=== PATIENT | female | born 1960 | race Caucasian/White ===

== ENCOUNTER → 2017-11-16 | Outpatient (CLI) | payer MEDICARE ==
[2017-11-17 12:02] LABS: BASOPHILS # (AUTO) 0.1 10^3/uL (0.0-0.1); BASOPHILS % (AUTO) 0.8 %; EOSINOPHILS # (AUTO) 0.3 10^3/uL (0.0-0.7); LYMPHOCYTES # (AUTO) 2.1 10^3/uL (1.5-3.5); LYMPHOCYTES % (AUTO) 24.1 %; MEAN CORPUSCULAR HGB CONC 34.1 g/dL (32.0-36.0); MEAN CORPUSCULAR VOLUME 96.7 fL (81.0-99.0); MEAN PLATELET VOLUME 8.7 fL (7.9-10.8); MONOCYTES # (AUTO) 0.5 10^3/uL (0.0-1.0); MONOCYTES % (AUTO) 5.9 %; NEUTROPHILS # (AUTO) 5.9 10^3/uL (1.5-6.6); NEUTROPHILS % (AUTO) 66.2 %; PLT - PLATELET COUNT 230 10^3/uL (130-450); RED BLOOD COUNT 4.24 10^6/uL (4.20-5.40); RED CELL DISTRIBUTION WIDTH 12.8 % (12.0-15.0); WHITE BLOOD COUNT 8.8 x10^3/uL (4.8-10.8)
[2017-11-17 12:20] LABS: ALBUMIN 4.5 g/dL (3.2-5.5); ALBUMIN/GLOBULIN RATIO 1.6 (1.0-2.2); ALKALINE PHOSPHATASE 95 IU/L (42-121); ALT ALANINE AMINOTRANSFERASE 14 IU/L (10-60); AST ASPARTATE AMINOTRANSFERASE 16 IU/L (10-42); BILIRUBIN,TOTAL 0.9 mg/dL (0.2-1.0); BUN - BLOOD UREA NITROGEN 13 mg/dL (6-20); CALCIUM 9.9 mg/dL (8.5-10.3); CARBON DIOXIDE - CO2 26 mmol/L (21-32); CHLORIDE 102 mmol/L (101-111); CHOL/HDL RATIO 5.7 (<4.4); CHOLESTEROL 218 mg/dL; CREATININE 0.6 mg/dL (0.4-1.0); GFR - MDRD 103 (>89); GLUCOSE 99 mg/dL (70-100); HDL CHOLESTEROL 38 mg/dL; LDL CHOLESTEROL,CALCULATED 144 mg/dL; LDL/HDL RATIO 3.8 (<4.4); SODIUM 137 mmol/L (135-145); TOTAL PROTEIN 7.3 g/dL (6.7-8.2); VLDL CHOLESTEROL 36 mg/dL
[2017-11-17 12:42] LABS: PLATELET ESTIMATE, MANUAL NORMAL (130-450,000) (NORMAL); PLATELET MORPHOLOGY NORMAL APPEARANCE (NORMAL); RBC MORPHOLOGY (MULTIPLE) NORMAL APPEARANCE (NORMAL)
[2017-11-17 13:19] LABS: HB2 TOTAL 15.3 g/dL; HEMOGLOBIN A1C 0.69 g/dL; HEMOGLOBIN A1C % 6.3 % (4.6-6.2)
== END ==
LOC: LAB.S 08:00
PROVIDERS: ATTEND Nurse Practitioner Family
DX: E11.40 Type 2 diabetes mellitus with diabetic neuropathy, unspecified (principal); E78.5 Hyperlipidemia, unspecified; E03.9 Hypothyroidism, unspecified
CPT/HCPCS: 36415; 80053; 80061; 82043; 83036; 83721; 84443; 85025

== ENCOUNTER 2018-05-25 13:34 | Outpatient (CLI) | payer MEDICARE ==
[2018-05-25 18:11] LABS: HB2 TOTAL 14.5 g/dL; HEMOGLOBIN A1C 0.58 g/dL; HEMOGLOBIN A1C % 5.8 % (4.6-6.2)
== END 2018-05-25 13:35 | disposition home or self-care (01) ==
LOC: LAB.F 13:34
PROVIDERS: ATTEND Nurse Practitioner Family
DX: E11.40 Type 2 diabetes mellitus with diabetic neuropathy, unspecified (principal)
CPT/HCPCS: 36415; 83036

== ENCOUNTER 2018-11-10 14:29 | Outpatient (CLI) | payer MEDICARE ==
[2018-11-10 17:35] LABS: BASOPHILS # (AUTO) 0.1 10^3/uL (0.0-0.1); BASOPHILS % (AUTO) 0.6 %; EOSINOPHILS # (AUTO) 0.6 10^3/uL (0.0-0.7); LYMPHOCYTES % (AUTO) 23.9 %; MEAN CORPUSCULAR HGB CONC 33.5 g/dL (32.0-36.0); MEAN CORPUSCULAR VOLUME 95.6 fL (81.0-99.0); MEAN PLATELET VOLUME 10.1 fL (7.9-10.8); MONOCYTES # (AUTO) 0.4 10^3/uL (0.0-1.0); MONOCYTES % (AUTO) 5.1 %; NEUTROPHILS # (AUTO) 5.3 10^3/uL (1.5-6.6); PLT - PLATELET COUNT 249 10^3/uL (130-450); RED BLOOD COUNT 4.06 10^6/uL (4.20-5.40); WHITE BLOOD COUNT 8.5 x10^3/uL (4.8-10.8)
[2018-11-10 18:04] LABS: CHOL/HDL RATIO 4.7 (<4.4); CHOLESTEROL 222 mg/dL; HDL CHOLESTEROL 47 mg/dL; LDL CHOLESTEROL,CALCULATED 132 mg/dL; LDL/HDL RATIO 2.8 (<4.4); VLDL CHOLESTEROL 43 mg/dL
[2018-11-10 18:31] LABS: HB2 TOTAL 13.9 g/dL; HEMOGLOBIN A1C 0.67 g/dL; HEMOGLOBIN A1C % 6.6 % (4.6-6.2)
== END 2018-11-10 14:30 | disposition home or self-care (01) ==
LOC: LAB.S 14:29
PROVIDERS: ATTEND Physician Assistant Medical
DX: E78.5 Hyperlipidemia, unspecified (principal); E11.40 Type 2 diabetes mellitus with diabetic neuropathy, unspecified; E03.9 Hypothyroidism, unspecified; Z79.899 Other long term (current) drug therapy
CPT/HCPCS: 36415; 80061; 82043; 82570; 83036; 83721; 84443; 85025

== ENCOUNTER 2018-11-12 08:00 | Outpatient (CLI) | payer MEDICARE ==
[2018-11-12 18:46] LABS: CREATININE,URINE 31.2 mg/dL
[2018-11-12 18:50] LABS: MICROALBUMIN,URINE < 0.2 mg/dL (0-300.0)
== END 2018-11-12 23:59 | disposition home or self-care (01) ==
LOC: LAB.R 08:00
PROVIDERS: ATTEND Physician Assistant Medical
DX: E11.40 Type 2 diabetes mellitus with diabetic neuropathy, unspecified (principal)
CPT/HCPCS: 82043; 82570

== ENCOUNTER 2019-04-18 07:16 | Outpatient (CLI) | payer MEDICARE | END 2019-04-18 07:17 | disposition home or self-care (01) | LOC: DI.S 07:16 | PROVIDERS: ATTEND Nurse Practitioner Family | DX: Z53.9 Procedure and treatment not carried out, unspecified reason (principal) ==

== ENCOUNTER 2019-09-20 10:40 | Outpatient (CLI) | payer MEDICARE ==
[2019-09-20 14:43] LABS: BASOPHILS # (AUTO) 0.1 10^3/uL (0.0-0.1); BASOPHILS % (AUTO) 0.7 %; EOSINOPHILS # (AUTO) 0.3 10^3/uL (0.0-0.7); EOSINOPHILS % (AUTO) 3.4 %; LYMPHOCYTES # (AUTO) 2.1 10^3/uL (1.5-3.5); LYMPHOCYTES % (AUTO) 24.3 %; MEAN CORPUSCULAR HEMOGLOBIN 32.2 pg (27.0-31.0); MEAN CORPUSCULAR HGB CONC 34.4 g/dL (32.0-36.0); MEAN CORPUSCULAR VOLUME 93.6 fL (81.0-99.0); MEAN PLATELET VOLUME 10.1 fL (7.9-10.8); MONOCYTES # (AUTO) 0.6 10^3/uL (0.0-1.0); MONOCYTES % (AUTO) 6.8 %; NEUTROPHILS # (AUTO) 5.5 10^3/uL (1.5-6.6); NEUTROPHILS % (AUTO) 64.2 %; PLT - PLATELET COUNT 263 10^3/uL (130-450); RED BLOOD COUNT 4.04 10^6/uL (4.20-5.40); RED CELL DISTRIBUTION WIDTH 11.8 % (12.0-15.0); WHITE BLOOD COUNT 8.5 x10^3/uL (4.8-10.8)
[2019-09-20 15:00] LABS: CREATININE,URINE 51.6 mg/dL; MICROALBUM/CREATININE RATIO,UR 56.2 ug/mg (<30.0); MICROALBUMIN,URINE 2.9 mg/dL (0-300.0)
[2019-09-20 15:01] LABS: ALBUMIN 4.2 g/dL (3.2-5.5); ALBUMIN/GLOBULIN RATIO 1.4 (1.0-2.2); ALKALINE PHOSPHATASE 108 IU/L (42-121); ALT ALANINE AMINOTRANSFERASE 17 IU/L (10-60); AST ASPARTATE AMINOTRANSFERASE 16 IU/L (10-42); BILIRUBIN,TOTAL 0.8 mg/dL (0.2-1.0); BUN - BLOOD UREA NITROGEN 14 mg/dL (6-20); CALCIUM 9.1 mg/dL (8.5-10.3); CARBON DIOXIDE - CO2 25 mmol/L (21-32); CHLORIDE 97 mmol/L (101-111); CHOL/HDL RATIO 4.9 (<4.4); CHOLESTEROL 204 mg/dL; CREATININE 0.7 mg/dL (0.4-1.0); GLUCOSE 135 mg/dL (70-100); HDL CHOLESTEROL 42 mg/dL; LDL CHOLESTEROL,CALCULATED 139 mg/dL; LDL/HDL RATIO 3.3 (<4.4); SODIUM 130 mmol/L (135-145); TOTAL PROTEIN 7.1 g/dL (6.7-8.2); VLDL CHOLESTEROL 23 mg/dL
[2019-09-20 15:05] LABS: HB2 TOTAL 13.6 g/dL; HEMOGLOBIN A1C 0.67 g/dL; HEMOGLOBIN A1C % 6.7 % (4.6-6.2)
== END 2019-09-20 10:41 | disposition home or self-care (01) ==
LOC: LAB.S 10:40
PROVIDERS: ATTEND Nurse Practitioner Family
DX: Z13.220 Encounter for screening for lipoid disorders (principal); E11.9 Type 2 diabetes mellitus without complications
CPT/HCPCS: 36415; 80053; 80061; 82043; 82570; 83036; 83721; 84443; 85025

== ENCOUNTER 2019-11-20 06:30 | Outpatient (CLI) | payer MEDICARE | END 2019-11-20 06:31 | disposition critical access hospital (66) | LOC: EMS 06:30 | PROVIDERS: ATTEND Surgery | DX: M54.5 Low back pain (principal); R20.0 Anesthesia of skin | CPT/HCPCS: A0425; A0427 ==

== ENCOUNTER 2019-11-20 07:06 | Emergency (ER) | payer MEDICARE ==
[2019-11-20] MEDS ORDERED: KETOROLAC 30 MG/ML VIAL IVP STA (07:34)
--- NOTE | 2019-11-20 07:37 | ED Physician Documentation ---
History of Present Illness - Stated complaint Stated Complaint: BACK PAIN - Chief complaint Chief Complaint: Back Pain - History obtained from History obtained from: Patient, EMS - Additonal information Additional information: Patient comes emergency department complaining of left lower back pain radiating through her hip and down into her knee. Patient states that she has a longstanding history of low back problems and that the last time she had an attack this bad was about 3 years ago. She states she has been moving and also done some camping in the last few weeks. Because all of her stuff is packed up, she has been sleeping on her old couch which has a recliner function, and has not been sleeping very well. Patient denies any direct trauma to the area. She denies any weakness or loss of bowel or bladder function. She states she has a numb feeling in a small patch just below her left knee, but otherwise, no sensory loss. Patient denies any abdominal pain. No chest pain or shortness of breath. No nausea vomiting. Patient states that she has not felt sick in any other way. No other complaints at this time. Review of Systems Ten Systems: 10 systems reviewed and negative Constitutional: reports: Reviewed and negative Eyes: reports: Reviewed and negative Ears: reports: Reviewed and negative Nose: reports: Reviewed and negative Throat: reports: Reviewed and negative Cardiac: reports: Reviewed and negative Respiratory: reports: Reviewed and negative GI: reports: Reviewed and negative : reports: Reviewed and negative Skin: reports: Reviewed and negative Musculoskeletal: reports: Back pain Neurologic: reports: Reviewed and negative Psychiatric: reports: Reviewed and negative Endocrine: reports: Reviewed and negative Immunocompromised: reports: Reviewed and negative PD PAST MEDICAL HISTORY - Past Medical History Past Medical History: Yes Respiratory: Asthma Endocrine/Autoimmune: Type 2 diabetes, HyPOthyroidism GI: Pancreatitis, Other SCREEN CLEANER: None Psych: Anxiety Musculoskeletal: Osteoarthritis, Chronic back pain, Other - Past Surgical History Past Surgical History: Yes HEENT: Tonsil/Adenoidectomy - Present Medications Home Medications: Ambulatory Orders Medication Instructions Recorded Confirmed ARIPiprazole [Abilify] 5 mg PO DAILY 07/26/13 08/22/15 Albuterol Sulfate [Proair Hfa] 8.5 gm IH QID 07/26/13 08/22/15 Nortriptyline [Pamelor] 50 mg PO HS 07/26/13 08/22/15 cloNIDine [Catapres] 0.1 mg PO BID 07/26/13 08/22/15 B Complex W-C No.20/Folic Acid 1 mg PO DAILY 08/22/15 08/22/15 [Virt-Caps Softgel] Cholecalciferol (Vitamin D3) 10,000 unit PO DAILY 08/22/15 08/22/15 [Vitamin D3] Fluticasone 44 Mcg [Flovent] 2 puffs INH Q4H 08/22/15 08/22/15 Insulin Glargine,Hum.rec.anlog 10 unit SQ DAILY 08/22/15 08/22/15 [Lantus] Levothyroxine [Synthroid] 137.5 mcg PO DAILY 08/22/15 08/22/15 Naproxen [Naprosyn] 500 mg PO BID 08/22/15 08/22/15 Omeprazole [PriLOSEC] 20 mg PO DAILY 08/22/15 08/22/15 buPROPion [Wellbutrin Sr] 100 mg PO DAILY 08/22/15 08/22/15 metFORMIN [Glucophage] 500 mg PO BIDWM 08/22/15 08/22/15 Cyclobenzaprine [Flexeril] 10 mg PO TID PRN #20 tablet 11/20/19 Hydrocodone/Acetaminophen 1 each PO Q6HR PRN 3 Days #12 11/20/19 [Hydrocodone-Acetamin 5-325 mg] tablet - Allergies Allergies/Adverse Reactions: Allergies Allergy/AdvReac Type Severity Reaction Status Date / Time No Known Drug Allergies Allergy Verified 07/26/13 15:30 - Social History Does the pt smoke?: Yes Smoking Status: Current every day smoker Does the pt drink ETOH?: No Does the pt have substance abuse?: No - Immunizations Immunizations are current?: Yes PD ED PE NORMAL - Vitals Vital signs reviewed: Yes - General General: Alert and oriented X 3, No acute distress - HEENT HEENT: Atraumatic, PERRL, EOMI, Moist mucous membranes - Neck Neck: Supple, no meningeal sign - Cardiac Cardiac: RRR, No murmur, Strong equal pulses - Respiratory Respiratory: No respiratory distress, Clear bilaterally - Abdomen Abdomen: Non distended - Back Back: Other (Patient has mild tenderness palpation over her L5-S1 area, which she describes as the focus of her back pain. No left sciatic tenderness to palpation. No right-sided tenderness whatsoever. No other spinal tenderness or step-off.) - Derm Derm: Normal color, Warm and dry, No rash - Extremities Extremities: No deformity, No tenderness to palpate, No calf tenderness / cord - Neuro Neuro: Alert and oriented X 3, bolt cutter 2-12 intact, No motor deficit, No sensory deficit, Normal speech - Psych Psych: Normal mood, Normal affect Results - Vitals Vitals: Vital Signs - 24 hr 11/20/19 07:10 Temperature 36.4 C L Heart Rate 89 Respiratory 18 Rate Blood Pressure 125/81 H O2 Saturation 97 Oxygen O2 Source Room air PD MEDICAL DECISION MAKING - ED course Complexity details: reviewed old records, considered differential, d/w patient ED course: The patient had had an IV placed by medics and had received 100 mcg of fentanyl, which had improved her symptoms by the time of arrival here. She was also given a dose of Toradol here in the emergency department. The patient actually appeared fairly comfortable and was able to sit up on her own for me, and I did not feel that any further parenteral opioids were indicated. I discussed with t jimena patient that I will give her some symptomatic treatment for at home, and that she should follow-up with her primary care physician. Patient has had cortisone shots in the past, which have been helpful, and she may see her primary care physician to discuss having one done again. We have discussed home management of the symptoms, as well as the usual indications for return. Departure - Departure Disposition: 01 Home, Self Care Clinical Impression: Back pain Qualifiers: Back pain location: low back pain Chronicity: acute Back pain laterality: left Sciatica presence: with sciatica Sciatica laterality: sciatica of left side Qualified Code(s): M54.42 - Lumbago with sciatica, left side Instructions: ED Back Care Tips, ED Low Back Pain Injury, NARCOTIC, Oral Prescriptions: Hydrocodone/Acetaminophen [Hydrocodone-Acetamin 5-325 mg] 1 each PO Q6HR PRN 3 Days #12 tablet PRN Reason: Pain Cyclobenzaprine [Flexeril] 10 mg PO TID PRN #20 tablet PRN Reason: Spasms
[2019-11-20 09:11] VITALS: BP 136/84
== END 2019-11-20 09:12 | disposition home or self-care (01) ==
LOC: EDUNIT# → ED 07:06
DX: M54.42 Lumbago with sciatica, left side (principal); E11.9 Type 2 diabetes mellitus without complications; Z79.4 Long term (current) use of insulin; J45.909 Unspecified asthma, uncomplicated; F17.200 Nicotine dependence, unspecified, uncomplicated
CPT/HCPCS: 96374; 99284

== ENCOUNTER 2019-11-25 12:20 | Outpatient (CLI) | payer MEDICARE ==
--- NOTE | 2019-11-27 22:19 | CT Report ---
PROCEDURE: PELVIS WO INDICATIONS: LUMBAR DISC DEGENERATION TECHNIQUE: Noncontrast 3 mm axial sections acquired through the bony pelvis, with coronal and sagittal reformatt ing. For radiation dose reduction, the following was used: automated exposure control, adjustment of mA and/or kV according to patient size. COMPARISON: None. FINDINGS: Image quality: Excellent. Bones: Moderate L4-L5 degenerative disc disease. No fracture or dislocation. No suspicious osseous l esions. Incidental note made of a bone island in the right superior pubic ramus. Mild bilateral hip a rthritis. Soft tissues: No free fluid or air. Visualized loops of bowel are normal caliber. Urinary bladder wa ll thickness is normal. Small fat-containing umbilical hernia. IMPRESSION: 1. Mild bilateral hip osteoarthritis. 2. Moderate L4-L5 degenerative disc disease. 2. No fracture or dislocation. Reviewed by: Maria Del Rosario Goldberg MD, PhD on 11/27/2019 10:18 PM PDT Approved by: Maria Del Rosario Goldberg MD, PhD on 11/27/2019 10:18 PM PDT Station ID: [id number]
--- NOTE | 2019-11-28 11:31 | CT Report ---
PROCEDURE: LUMBAR SPINE WO INDICATIONS: LUMBAR DISC DEGENERATION TECHNIQUE: Noncontrast 3 mm thick sections acquired from the T12 level to the sacrum. Sagittal and coronal refo rmats were constructed. For radiation dose reduction, the following was used: automated exposure co ntrol, adjustment of mA and/or kV according to patient size. COMPARISON: Correlation is made with prior lumbar plain films 08/22/2012 FINDINGS: Image quality: Excellent. Bones: No acute vertebral body compression fractures. No suspicious lytic or blastic bony lesions. Central spinal caliber is of normal overall caliber. No pars defects. S-shaped scoliotic curvature is incidentally noted. Minimal retrolisthesis is seen at L3-L4 and L4-L 5. This patient has transitional anatomy. For the purposes of this examination, the level with the last pair of ribs is considered to be T12. By this imaging scheme, the L5 level is transitional and partia lly sacralized, with a greater degree of sacralization on the right side than on the left. T12-L1: The disc height is relatively well preserved. Mild disc bulge is seen, which is eccentric to the left. No significant neural foraminal or central canal narrowing can be seen. L1-L2: The disc height is well-preserved. Mild disc bulge is seen. There is a minimal right fora leidy disc protrusion. There is mild to moderate bilateral neuroforaminal narrowing seen. No signific ant central canal narrowing is seen. L2-L3: The disc height is well-preserved. Moderate disc bulge is seen, which is eccentric to the r ight, with a right foraminal disc protrusion, as on series 3 image 49. There is mild to moderate bila teral neuroforaminal narrowing seen. Moderate central canal narrowing is seen. L3-L4: The disc height is well-preserved. At least moderate disc bulge is seen, with a central disc protrusion. Vacuum disc phenomenon is seen at this level. Mild facet hypertrophy is seen. There i s moderate left-sided and [id number] right-sided neuroforaminal narrowing seen. Moderate centr al canal narrowing is seen. L4-L5: Moderate loss of disc height is seen. Vacuum disc phenomenon is seen at this level. At prabhu st moderate disc bulge is seen. There is a central disc protrusion. Moderate facet hypertrophy is se en. Posteriorly directed endplate osteophytes are seen. There is moderate to severe left-sided and at least moderate right-sided neuroforaminal narrowing seen. Moderate central canal narrowing is see n. L5-S1: The disc height is well-preserved. Moderate disc bulge is seen, which is eccentric to the ri ght. Posteriorly directed endplate osteophytes are seen, which are more prominent on the right side t [place] on the left. There is moderate left-sided and at least moderate right-sided neuroforaminal narrow ing seen. Minimal central canal narrowing is seen. Soft tissues: No retroperitoneal masses or hematomas. Visualized aorta is normal in caliber. IMPRESSION: Lumbar spine degenerative change is seen, which is overall most prominent at the L4-L5 level. 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 S-shaped scoliosis is seen. Reviewed by: Landon Henry MD on 11/28/2019 10:30 AM MELINA Approved by: Landon Henry MD on 11/28/2019 10:30 AM MELINA Station ID: [id number]
== END 2019-11-25 12:21 | disposition home or self-care (01) ==
LOC: DI 12:20
PROVIDERS: ATTEND Nurse Practitioner Family
DX: M51.36 Other intervertebral disc degeneration, lumbar region (principal); M51.26 Other intervertebral disc displacement, lumbar region; M41.86 Other forms of scoliosis, lumbar region; M70.62 Trochanteric bursitis, left hip; M16.0 Bilateral primary osteoarthritis of hip
CPT/HCPCS: 72131; 72192

== ENCOUNTER 2019-12-09 04:52 | Outpatient (CLI) | payer MEDICARE | END 2019-12-09 04:53 | disposition critical access hospital (66) | LOC: EMS 04:52 | PROVIDERS: ATTEND Surgery | DX: M54.32 Sciatica, left side (principal) | CPT/HCPCS: A0425; A0427 ==

== ENCOUNTER 2019-12-09 05:26 | Emergency (ER) | payer MEDICARE ==
--- NOTE | 2019-12-09 05:24 | ED Physician Documentation ---
History of Present Illness - Stated complaint Stated Complaint: BACK PAIN - History obtained from History obtained from: Patient - Additonal information Additional information: The patient is a 59-year-old female who arrives by ambulance with a chief complaint of left sciatica pain. The patient reports that she was packing boxes in her residence tonight because she is being evicted and during the process she slipped and fell on her bottom she reports that has exacerbated her chronic left-sided sciatica that has her using a walker to assist with ambulation she has follow-up with her orthopedic surgeon this week as well as her primary care provider. She denies any bowel or bladder dysfunction or any saddle anesthesia she describes pain that starts in her left gluteal region and then radiates down her left lower extremity. Review of Systems Constitutional: reports: Reviewed and negative Eyes: reports: Reviewed and negative Ears: reports: Reviewed and negative Nose: reports: Reviewed and negative Throat: reports: Reviewed and negative Cardiac: reports: Reviewed and negative Respiratory: reports: Reviewed and negative GI: reports: Reviewed and negative : reports: Reviewed and negative Skin: reports: Reviewed and negative Musculoskeletal: reports: Other (Left-sided sciatica pain) Neurologic: reports: Reviewed and negative Psychiatric: reports: Reviewed and negative Endocrine: reports: Reviewed and negative Immunocompromised: reports: Reviewed and negative PD PAST MEDICAL HISTORY - Present Medications Home Medications: Ambulatory Orders Medication Instructions Recorded Confirmed ARIPiprazole [Abilify] 5 mg PO DAILY 07/26/13 12/09/19 Albuterol Sulfate [Proair Hfa] 8.5 gm IH QID 07/26/13 12/09/19 Nortriptyline [Pamelor] 50 mg PO HS 07/26/13 12/09/19 cloNIDine [Catapres] 0.1 mg PO BID 07/26/13 12/09/19 B Complex W-C No.20/Folic Acid 1 mg PO DAILY 08/22/15 12/09/19 [Virt-Caps Softgel] Cholecalciferol (Vitamin D3) 10,000 unit PO DAILY 08/22/15 12/09/19 [Vitamin D3] Fluticasone 44 Mcg [Flovent] 2 puffs INH Q4H 08/22/15 12/09/19 Insulin Glargine,Hum.rec.anlog 10 unit SQ DAILY 05/25/16 09/11/20 [Lantus] Levothyroxine [Synthroid] 137.5 mcg PO DAILY 08/22/15 12/09/19 Naproxen [Naprosyn] 500 mg PO BID 08/22/15 12/09/19 Omeprazole [PriLOSEC] 20 mg PO DAILY 08/22/15 12/09/19 buPROPion [Wellbutrin Sr] 100 mg PO DAILY 08/22/15 12/09/19 metFORMIN [Glucophage] 500 mg PO BIDWM 08/22/15 12/09/19 Cyclobenzaprine [Flexeril] 10 mg PO TID PRN #20 tablet 11/20/19 12/09/19 Hydrocodone/Acetaminophen 1 each PO Q6HR PRN 3 Days #12 11/20/19 12/09/19 [Hydrocodone-Acetamin 5-325 mg] tablet Hydrocodone/Acetaminophen [[place] 1 each PO Q6HR PRN #7 tablet 12/09/19 5-325 Tablet] - Allergies Allergies/Adverse Reactions: Allergies Allergy/AdvReac Type Severity Reaction Status Date / Time No Known Drug Allergies Allergy Verified 12/09/19 05:39 PD ED PE NORMAL - Vitals Vital signs reviewed: Yes - General General: Alert and oriented X 3, No acute distress - HEENT HEENT: PERRL - Neck Neck: Supple, no meningeal sign - Cardiac Cardiac: RRR, No murmur - Respiratory Respiratory: Clear bilaterally - Abdomen Abdomen: Normal bowel sounds, Soft, Non tender, Non distended - Derm Derm: Warm and dry - Extremities Extremities: No deformity, Other (Positive straight leg test on the left lower extremity) - Neuro Neuro: Alert and oriented X 3, director of resource development 2-12 intact, No motor deficit, No sensory deficit, Normal speech - Psych Psych: Normal mood, Normal affect - Free text exam Free text exam: Physical exam shows a positive straight leg test on the left she is able to ambulate she can stand on her heels and her toes her reflexes are 2+ and symmetrical in bilateral patellar and Achilles proprioception is intact bilateral great toes. Strength is 5 out of 5 in bilateral lower extremities. Compartments are soft neurovascular intact throughout palpable DP and PT pulses are 2+ and symmetric. Cap refill less than 2 seconds, Negative Homans sign bilaterally. Results - Vitals Vitals: Vital Signs - 24 hr 09/11/20 05:30 Temperature 36.6 C Heart Rate 85 Respiratory 16 Rate Blood Pressure 135/88 H O2 Saturation 97 Oxygen O2 Source Room air PD MEDICAL DECISION MAKING - ED course Complexity details: re-evaluated patient, considered differential (Sciatica of the left lower extremity), d/w patient ED course: 59-year-old female with exacerbation of left lower extremity sciatica. I did agree to treat this patient with 1 mg of Dilaudid as well as a burst of IV steroids with 125 mg of Solu-Medrol. She will be discharged home and will follow up with her primary care provider today.Patient does report that she is a diabetic reports her blood sugars have been in the 100s to 150s I had a discu ssion with her regarding the side effects of steroids and it can cause hypoglycemia as well as other side effects but after explaining all the benefits alternatives and risks she accepts the risk of being treated with Solu-Medrol. We will also provide a short term prescription of analgesia for this patient Departure - Departure Disposition: 01 Home, Self Care Clinical Impression: Sciatica Qualifiers: Laterality: left Qualified Code(s): M54.32 - Sciatica, left side Condition: Stable Instructions: ED Sciatica Follow-Up: KWASI JORDAN ARNP [Primary Care Provider] - 12/09/19 Prescriptions: Hydrocodone/Acetaminophen [[place] 5-325 Tablet] 1 each PO Q6HR PRN #7 tablet PRN Reason: Pain Comments: Follow-up with your primary care provider this week.
[2019-12-09] MEDS ORDERED: methylPREDNISolone SUCCINATE 125 MG/2 ML VIAL IVP STA (06:00)
[2019-12-09] MEDS ORDERED: HYDROmorphone 0.5 MG/0.5 ML SYRINGE IVP STA (06:00)
[2019-12-09 06:27] VITALS: BP 132/82
== END 2019-12-09 06:46 | disposition home or self-care (01) ==
LOC: EDUNIT# → ED 05:26
DX: M54.32 Sciatica, left side (principal); Z91.81 History of falling
CPT/HCPCS: 96374; 99283; 99284; J1170